=== PATIENT | female | born 1970 | race Caucasian/White ===

== ENCOUNTER 2017-06-01 09:28 | Emergency (ER) | payer OTHER ==
[2017-06-01 09:50] VITALS: RESP 16; TEMP 98.4
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
[2017-06-01 12:09] VITALS: BP 120/79; PULSE 73; O2SAT 99
== END 2017-06-01 12:08 | disposition home or self-care (01) ==
DX: S52.501A Unspecified fracture of the lower end of right radius, initial encounter for closed fracture (principal); V46.5XXA Car driver injured in collision with other nonmotor vehicle in traffic accident, initial encounter; Y92.410 Unspecified street and highway as the place of occurrence of the external cause; Y99.8 Other external cause status; Y93.89 Activity, other specified
CPT/HCPCS: A4565

== ENCOUNTER → 2017-10-17 | Outpatient (CLI) | payer OTHER | LOC: FIMAGING 10:58 | PROVIDERS: ATTEND Obstetrics & Gynecology | DX: Z12.31 Encounter for screening mammogram for malignant neoplasm of breast (principal) | CPT/HCPCS: G0202 ==